=== PATIENT | male | born 1940 | race Caucasian/White ===

== ENCOUNTER 2019-07-02 21:42 | Inpatient (IN) | payer MEDICARE ==
[~2019-07-02] VITALS: Ht 170.2 cm; Wt 52.0 kg
--- NOTE | 2019-07-02 21:42 | NUR ---
PT. TO ROOM 10 VIA EMS WITH C/O FEELING SOB. O2 SAT ON RA BETWEEN 88-92%. BILATERAL LUNG FILEDS ARE DEMINISHED. LEFT EAR IS REDDENED WITH A DRIED BLOODY DTAINAGE. PT. STATES, " THE DOCTOR CHOPPED IT OFF." MD AT BEDSIDE.
[2019-07-02] MEDS ORDERED: FERR SULFATE325 MG PO (22:23)
[2019-07-02] MEDS ORDERED: FOLIC ACID1 MG PO (22:23)
[2019-07-02] MEDS ORDERED: DOCUSATE SOD100 M2 PO (22:25)
[2019-07-02] MEDS ORDERED: CILOXAN 0.3% AU (22:27)
--- NOTE | 2019-07-02 22:42 | NUR ---
PT. HAS NO C/O AT THIS TIME.
[2019-07-02 22:50] LABS: HEMATOCRIT 39.9 % (39.0-50.0); HEMOGLOBIN 12.4 g/dl (14.0-18.0); IMMATURE GRANULOCYTES 4.3 % (0.0-5.0); MEAN CELL VOLUME 111.5 fL CALC (80.0-100.0); MEAN CORPUSCULAR HGB 34.6 pG CALC (26.0-32.0); MEAN CORPUSCULAR HGB CONC 31.1 g/L CALC (32.0-36.0); NEUT# 16.26 thou/uL (1.82-7.42); RED BLOOD COUNT 3.58 mill/uL (4.70-6.10); RED CELL DISTRI WIDTH 19.6 % (11.5-15.5)
--- NOTE | 2019-07-02 23:00 | NUR ---
RESP. THERAPIST APPLIED O2 3 LIT/NC. O2 SAT NOW 100%.
[2019-07-02 23:08] LABS: ALBUMIN 3.6 g/dL (3.2-5.0); ALKALINE PHOSPHATASE 104 u/l (38-126); ANION GAP 11 (6-22 (CALC)); BILIRUBIN, TOTAL 0.9 mg/dL (0.0-1.4); BUN 44 mg/dL (8-23); BUN/CREATININE RATIO 23 (12-20 (CALC)); CARBON DIOXIDE 35 mmol/l (22-30); CHLORIDE 103 mmol/l (95-108); CREATININE 1.9 mg/dL (0.7-1.3); GFR 34 ML/MIN (>=60 (CALC)); GFR FOR AFR.AMER. 41 ML/MIN (>=60 (CALC)); SGOT/AST 24 u/l (19-48); SODIUM 144 mmol/l (137-146); TOTAL PROTEIN 6.7 g/dL (6.3-8.2)
[2019-07-02 23:11] LABS: POTASSIUM 5.3 mmol/l (3.5-5.1)
[2019-07-02 23:20] LABS: MYOGLOBIN 122 ng/mL (0 - 121)
--- NOTE | 2019-07-02 23:47 | NUR ---
IV ABT. STARTED PER MD ORDER.
--- NOTE | 2019-07-02 23:53 | NUR ---
PT. STATES HE CANNOT VOID, REFUSES [facility].
[2019-07-03] VITALS (8 sets, daily range): BP systolic 97–180; BP diastolic 40–96
--- NOTE | 2019-07-03 00:12 | NUR ---
Admission Note Report Given to: VERONICA AMEZQUITA Transported by: Wheelchair X Stretcher Transported with: X Nurse Transporter X Patent IV X O2 X Bridges And Buildings Supervisor
--- NOTE | 2019-07-03 00:19 | NUR ---
PT. TRANSFERED [place] [facility] [place].
--- NOTE | 2019-07-03 00:22 | NUR ---
PT ARRIVED TO [facility] VIA STRETCHER ACCOMPANIED BY ER NURSE, PT ALERT AND APPROPRIATE, PT VERY HARD OF HEARING BUT TRANSFERRED SELF FROM STRETCHER TO BED. SINCE ED NURSE UNSURE IF PT IS ABLE TO STAND. DISCUSSED WITH PT TO STAND FOR WEIGHT. STANDING SCALE BROUGHT TO BEDSIDE PT STOOD FOR WEIGHT. ATTEMPTED TO REMOVE PANTS, PT REFUSED. INFORMED PT THAT COORDINATOR OF ONLINE PROGRAMS NEEDS TO DO AN ASSESSMENT. PT STATES THAT HE IS COLD AND TOO TIRED AND DOES NOT WANT TO TAKE HIS PANTS OFF. NOTED PT IS WEARING A BRIEF, INFORMED PT THAT COORDINATOR OF ONLINE PROGRAMS WILL ALLOW PT TO REST BUT WILL RETURN FOR ASSESSMENT. VERBALIZED UNDERSTANDING. PT HAS PARTIAL L EAR, SEE CHART FOR PHOTO. REFUSED TEDS, SKIN TEAR TO L SKIN AND SCABBED WOUND ON TOP OF L FOOT; PHOTO OBTAINED. CALL LIGHT IN REACH,CONTINUE TO MONITOR.
--- NOTE | 2019-07-03 01:20 | NUR ---
RECEIVED CALL FROM MELIDA BURK, STATES SHE IS PT'S HEALTHCARE SURROGATE. TRANSFERRED CALL TO PT, RECEIVED PERMISSION TO DISCUSSED INFORMATION WITH MELIDA. CALL LIGHT IN REACH,CONTINUE TO MONITOR.
--- NOTE | 2019-07-03 02:59 | NUR ---
RECEIVED CALL FROM ED TELE OFF. REPLACED TELE PT STATES HE IS JUST GOING TO TAKE IT OFF AGAIN BECAUSE HE CAN'T SLEEP WITH IT ON. CALL LIGHT IN REACH,CONTINUE TO MONITOR, BED ALARM FOR SAFETY.
--- NOTE | 2019-07-03 04:46 | NUR ---
BP ELEVATED, ED MD CALLED FOR ORDERS. RECEIVED 1X LABATELOL ORDER FOR BP.CONTINUE TO MONITOR.
[2019-07-03 05:11] LABS: URINE BILIRUBIN - DIPSTICK NEGATIVE (NEGATIVE); URINE BLOOD DIPSTICK TRACE-INTACT (NEGATIVE); URINE COLOR YELLOW; URINE GLUCOSE - DIPSTICK NEGATIVE (NEGATIVE); URINE KETONE NEGATIVE (NEGATIVE); URINE LEUK ESTERASE NEGATIVE (NEGATIVE); URINE NITRITE - DIPSTICK NEGATIVE (Negative); URINE PROTEIN - DIPSTICK TRACE mg/dL (NEG-TRACE); URINE SPECIFIC GRAVITY 1.025; URINE UROBILINOGEN - DIPSTICK 0.2 E.U./dL (0.2)
--- NOTE | 2019-07-03 07:30 | NUR ---
PT IN SUPINE POSITION; A/O X4, FOND DU LAC; DENIES PAIN; REFUSED BREAKFAST THIS AM; O2 3L VIA N/C; TELE MONITORI IN PLACE; IVF INFUSIN IN #20 RAC WITHOUT DIFFICULTY, NO REDNESS OR EDEMA AT SITE; CALL SHAH WITHIN REACH; WILL CONTINUE TO MONITOR.
--- NOTE | 2019-07-03 08:52 | NUR ---
DR. GRAYSON IN TO SEE PT; PLAN OF CARE DISCUSSED;
--- NOTE | 2019-07-03 10:35 | NUR ---
REPORT RECEIVED FORM KALYAN, PT RESTING IN BED, NO C/O DISCOMFORT, IVF INFUSING, TELE MONITOR IN PLACE AND CALL SHAH IN REACH.
--- NOTE | 2019-07-03 20:00 | NUR ---
PT. RESTING IN BED WITH NO COMPLAINTS.ASSESSMENT COMPLETED. IV SITE PATENT AND INFUSING ORDERED IVF WELL. DENIES NEEDS OR PAIN. PT. IS VERY [place]. 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 SCAB ALSO NOTED TO TOP OF LEFT FOOT AND BANDAID IN PLACE TO LEFT FUENTES. ENCUORAGED PO FLUIDS. PT. REQUESTS LIGHTS TO BE TURNED OUT AND DONE SO AT THIS TIME. NEW BAG OF ORDERED IVF HUNG. ENCOURAGED TO CALL FOR ANY NEEDS. CALL LIGHT IS IN REACH. WILL CONTINUE TO MONITOR.
--- NOTE | 2019-07-03 21:32 | NUR ---
APPLIED DUODERM TO RIGHT OUTER BUTTOCK(LOWER HIP AREA) PHOTO OBTAINED AND PLACED IN CHART.
--- NOTE | 2019-07-03 23:28 | NUR ---
SCHED ABT SURI. DENIES NEEDS. VOICES NO CONCERNS. ENCOURAGED TO CALL FOR ANY NEEDS. BED ALARM ON. CALL LIGHT IS IN REACH.
[2019-07-04] VITALS (7 sets, daily range): BP systolic 93–151; BP diastolic 44–77
--- NOTE | 2019-07-04 00:15 | NUR ---
X-RAY TECH AT BEDSIDE OBTAINING C-XRAY. WILL AWAIT RESULTS.
--- NOTE | 2019-07-04 00:25 | NUR ---
[phone]- DIRECTOR TELEHEALTH CALLED AND NOTIFIED STAFF THAT PT'S HR IS UP TO 130-150 S-TACH. PT. IN BED AND C/O SOB ASSISTED PT. TO SIT UP IN BED AND O2 INCREASED TO 3 LITERS/MIN PER NC. SPO2 READS 98-100%. RADIAL HR 100 AT THIS TIME. WHILE IN THE ROOM @0013 ER CALLED AGAIN REPORTING THAT HR IS NOW AFIB. PT. DENIES KNOWING IF HE HAS ANY HX OF HEART PROBLEMS OR IF HE TAKES ANY HEART MEDICATIONS NORMALLY. B/P 126/77 AND HR FLUCTUATING 110-130. LUNG SOUNDS ALSO SOUND CONGESTED. RT AT BEDSIDE TO CONFIRM RHYTHYM CHANGE AND PER RT IT READS A-FLUTTER WITH HR 126. 0025- NOTIFIED DR. GRAYSON OF THE ABOVE NOTE. NEW ORDERS RECEIVED FOR C-XRAY ONLY AT THIS TIME.
--- NOTE | 2019-07-04 01:15 | NUR ---
CLERK CASHIER IN AT BEDSIDE AND OBTAINED C-XRAY. WILL AWAIT RESULTS.
--- NOTE | 2019-07-04 01:20 | NUR ---
PT. MEDICATED WITH ORDERED PRN LOPRESSOR FOR HR 122; WILL CONTINUE TO MONITOR.PT. ON TELEMETRY.
--- NOTE | 2019-07-04 02:36 | NUR ---
CALLED AND SPOKE WITH HAND BOX COVERER AND PER HIM PT'S HR NOW IS DOWN TO 85 AND IS CONVERTED BACK TO SR, BUT HAS BEEN BACK IN FORTH IN AFIB. WILL GET EKG TO CONFIRM RHYTHYM CHANGE. CALLED RT AND NOTIFIED THEM OF NEED FOR EKG.
--- NOTE | 2019-07-04 03:45 | NUR ---
DR. GRAYSON CALLED AND SPOKE TO THIS CORE WORKER ON UPDATED POC FOR PT.. NOTIFIED MD OF RHYTHYM CHANGE BACK TO SR AND HR DOWN IN THE 80'S NOW. ALSO NOTIFIED HIM OF IMPRESSION ON C-XRAY.
[2019-07-04 04:54] LABS: HEMATOCRIT 34.9 % (39.0-50.0); HEMOGLOBIN 10.7 g/dl (14.0-18.0); MEAN CELL VOLUME 114.4 fL CALC (80.0-100.0); MEAN CORPUSCULAR HGB 35.1 pG CALC (26.0-32.0); MEAN CORPUSCULAR HGB CONC 30.7 g/L CALC (32.0-36.0); RED BLOOD COUNT 3.05 mill/uL (4.70-6.10); RED CELL DISTRI WIDTH 19.6 % (11.5-15.5)
[2019-07-04 05:15] LABS: CREATININE 1.9 mg/dL (0.7-1.3); POTASSIUM 4.7 mmol/l (3.5-5.1)
--- NOTE | 2019-07-04 05:21 | NUR ---
SCHED MEDS GIVEN. PT. DENIES NEEDS/PAIN. ENCOURAGED TO CALL FOR ANY NEEDS. BED ALARM REMAINS SET FOR SAFETY PREC. CALL LIGHT IS IN REACH. IV SITE PATENT AND INFUSING ORDERED IVF WELL. CALL LIGHT IS IN REACH.
--- NOTE | 2019-07-04 08:20 | NUR ---
ASSESSMENT DONE . TELE IN PLACE. PT IS A&O X2. PT IS HARD OF HEARING. PT DENIES PAIN PAIN. O2 AT 3L VIA NC. CALL LIGHT IN REACH. PT DENIES NEEDS. ASSISTED PT TO THE WHEELCHAIR FOR HIS CT.
--- NOTE | 2019-07-04 12:20 | NUR ---
ASSISTED PT TO USE THE URINAL. PT IS UNSTEADY ON HIS FEET. CHANGE THE DUODERM TO HIS RIGHT OUTER BUTTOCK. DRESSING TO RIGHT BACK SIDE CDI. BED ALARM IN PLACE. CALL LIGHT IN REACH.
--- NOTE | 2019-07-04 15:21 | NUR ---
PT IS SLEEPING IN BED WITH NO S/S OF DISTRESS NOTED. IVF INFUSING WELL. TELE IN PLACE. CALL LIGHT IN REACH.
--- NOTE | 2019-07-04 18:10 | NUR ---
ER CALLED TELE READING 140-150. CHECKED VS P-110 , BP 122/44, O2 95
--- NOTE | 2019-07-04 18:19 | NUR ---
NOTIFIED DR. GRAYSON RE: ER STATED TELE READING 140-150. VS WERE OBTAIN P-110, BP 122/44. NO NEW ORDERS RECEIVED AT THIS TIME.
--- NOTE | 2019-07-04 19:19 | NUR ---
REPORT FROM DERRICK AMEZQUITA. PT RESTING IN BED, ALERT AND ORIENTED X2, [place]. NO DISTRESS NOTED. 02 @ 3L/M VIA NC. PT DENIES ANY PAIN OR DISCOMFORT. ENCOURAGED SNACK AND ORAL FLUIDS. PT REFUSING. DISCUSSED POC. PT VERBALIZED UNDERSTANDING. WILL REINFORCE NEEDED. CALL LIGHT WITHIN REACH. BED ALARM FOR SAFETY. WILL CONTINUE TO MONITOR.
--- NOTE | 2019-07-04 22:30 | NUR ---
PT FOUND WITH IV SITE DISLODGED. CATHETER INTACT. PRESSURE BANDAGE APPLIED TO SITE. NEW IV START X1 ATTEMPT #22 TO RFA WITH BRISK BLOOD RETURN. PT TOLERATED WELL.
--- NOTE | 2019-07-05 01:07 | NUR ---
PT SOUNDED BED ALARM. ASSISTED PT TO SIDE OF BED TO VOID IN URINAL. PT VOIDED 300ML CLEAR YELLOW URINE. NO DISTRESS NOTED. ASSISTED BACK TO BED. CALL LIGHT WTIHIN REACH AND BED ALARM FOR SAFETY. WILL CONTINUE TO MONITOR
[2019-07-05 04:20] VITALS: BP 155/82
[2019-07-05 05:11] LABS: HEMOGLOBIN 9.9 g/dl (14.0-18.0); MEAN CELL VOLUME 111.5 fL CALC (80.0-100.0); MEAN CORPUSCULAR HGB 34.5 pG CALC (26.0-32.0); MEAN CORPUSCULAR HGB CONC 30.9 g/L CALC (32.0-36.0); RED BLOOD COUNT 2.87 mill/uL (4.70-6.10); RED CELL DISTRI WIDTH 19.6 % (11.5-15.5)
[2019-07-05 05:29] LABS: CREATININE 1.8 mg/dL (0.7-1.3); POTASSIUM 3.8 mmol/l (3.5-5.1)
--- NOTE | 2019-07-05 07:51 | NUR ---
YINKA FROM ER CALLED THAT TELE READING ON PT IS A.FIB 170. PT IS RESTING IN BED WITH NO S/S OF DISTRESS NOTED. ASSESSMENT DONE. PT IS A&O X2 . VS OBTAIN. EKG ORDER. O2 AT 3L VIA NC. PT IS HARD OF HEARING. IVF AT KVO INFUSING WELL. BED ALARM IN PLACE FOR SAFETY. CALL LIGHT IN REACH.
[2019-07-05 07:54] VITALS: BP 102/70
--- NOTE | 2019-07-05 09:20 | NUR ---
DR. GRAYSON AT [facility] TO ASSESS PT AND DISCUSS POC WITH PT. NOTIFIED MD THAT ER HAD CALLED RE: PT A.FIB, EKG WAS ORDER AND VS WERE OBATAIN.
[2019-07-05] MEDS ORDERED: LOPRESSOR25 M1 PO (09:32)
[2019-07-05] MEDS ORDERED: LEVAQUIN750 MG PO (09:39)
--- NOTE | 2019-07-05 10:02 | NUR ---
NEB TX NOT GIVEN DUE TO INCREASED HR.
[2019-07-05] MEDS ORDERED: ASPIRIN ADULT L81 M2 PO (10:08)
[2019-07-05 11:14] VITALS: BP 101/56
--- NOTE | 2019-07-05 12:05 | NUR ---
PRUINE JUICE PROVIDE TO PT . PT IS RESTING IN BED WITH NO S/S OF DISTRESS NOTED. CALL LIGHT IN REACH.
--- NOTE | 2019-07-05 13:40 | NUR ---
NEB TX NOT GIVEN DUE TO INCREASED HR
--- NOTE | 2019-07-05 14:04 | NUR ---
Discharge instructions given. Patient verbalizes understanding of same. Discharged in stable condition via Wheelchair to [facility]HAB with staff. All belongings sent with pt.
--- NOTE | 2019-07-05 14:13 | NUR ---
REPORT GIVEN TO RADHA FROM REHAB.
== END 2019-07-05 14:05 | DRG 193 ==
LOC: ED 21:42 → ED-I 23:17 → ED 23:50 → MS2 23:51
PROVIDERS: Emergency Medicine; ADMIT Internal Medicine; ATTEND Internal Medicine
PROC: 0W993ZZ Drainage of Right Pleural Cavity, Percutaneous Approach (ICD-10-PCS; principal; 2019-07-04)
DX: J18.9 Pneumonia, unspecified organism (principal); L89.213 Pressure ulcer of right hip, stage 3; J96.01 Acute respiratory failure with hypoxia; Z68.1 Body mass index [BMI] 19.9 or less, adult; N17.9 Acute kidney failure, unspecified; J91.8 Pleural effusion in other conditions classified elsewhere; C44.209 Unspecified malignant neoplasm of skin of left ear and external auricular canal; I48.0 Paroxysmal atrial fibrillation; R62.7 Adult failure to thrive; E86.0 Dehydration; N18.9 Chronic kidney disease, unspecified; I50.9 Heart failure, unspecified; H91.90 Unspecified hearing loss, unspecified ear; Y95 Nosocomial condition; Z60.2 Problems related to living alone; Z87.891 Personal history of nicotine dependence

== ENCOUNTER 2019-07-15 17:09 | Inpatient (IN) | payer MEDICARE ==
[~2019-07-15] VITALS: Ht 170.2 cm; Wt 52.3 kg
[~2019-07-15 17:09] MED LIST: ASPIRIN ADULT L81 M2 PO; CILOXAN 0.3% AU; DOCUSATE SOD100 M2 PO; FERR SULFATE325 MG PO; FOLIC ACID1 MG PO; LEVAQUIN750 MG PO; LOPRESSOR25 M1 PO
--- NOTE | 2019-07-15 17:25 | NUR ---
IV ATTEMPT X2 BY THIS NURSE, UNSUCCESSFUL
--- NOTE | 2019-07-15 17:26 | NUR ---
PT IN NO DISTRESS AT THIS TIME, RESP EVEN AND UUNLABORED. O2 SAT 96% ON O2@2LPM VIA N/C
--- NOTE | 2019-07-15 17:40 | NUR ---
UNSUCCESSFUL IV STICK X2 BY FRANK MCDUFFIERN
--- NOTE | 2019-07-15 17:40 | NUR ---
DISCUSSED RESP STATUS WITH MD, O2 SAT 97% ON O2@2LPM VIA NS MD STATES HOLD BIPAP AND REPEAT ABG IN 30 MIN. RT NOTIFIED
[2019-07-15 18:20] LABS: MEAN CELL VOLUME 111.1 fL CALC (80.0-100.0); MEAN CORPUSCULAR HGB 34.1 pG CALC (26.0-32.0); MEAN CORPUSCULAR HGB CONC 30.7 g/L CALC (32.0-36.0); NEUT# 6.75 thou/uL (1.82-7.42); RED BLOOD COUNT 2.61 mill/uL (4.70-6.10); RED CELL DISTRI WIDTH 18.4 % (11.5-15.5)
--- NOTE | 2019-07-15 18:20 | NUR ---
BIPAP INITIATED WITH RT. PT TOLERATING WELL.
--- NOTE | 2019-07-15 18:26 | NUR ---
PT CONTINUOUSLY REMOVIGN BIPAP, O2 SATS DOPPING INTO HIGH 80'2
--- NOTE | 2019-07-15 18:32 | NUR ---
PT WILL NOT LEAVE BIPAP IN PLACE, ADVISED AND REPLACED BIPAP WITH O2@2LPM VIA N/C. O2 SAT 96% ON O2. PT CONFUSED IN NO DISTRESS.
[2019-07-15 18:34] LABS: HEMOGLOBIN 8.9 g/dl (14.0-18.0); IMMATURE GRANULOCYTES 7.4 % (0.0-5.0)
[2019-07-15 18:37] LABS: ACT PARTIAL THROMBO TIME 29.3 SECONDS (20.0-32.5); INTERNATIONAL NORMALIZED RATIO 1.2 RATIO (0.7-1.3); PROTHROMBIN TIME 12.2 SECONDS (9.0-12.5)
[2019-07-15 18:38] LABS: CREATININE 1.4 mg/dL (0.7-1.3)
--- NOTE | 2019-07-15 18:51 | NUR ---
REPORT TO JUAN J AMEZQUITA AND CALLED REPOR TO AMY OF R TO ADVISE OF ADMIT.
--- NOTE | 2019-07-15 18:52 | NUR ---
RECEIVED REPORT FROM BIA ADDISON. PT SITTING UP IN STRETCHER WITH 02 2 2L VIA N/C. PT SAT 100%
[2019-07-15 19:31] LABS: BILIRUBIN, TOTAL 0.6 mg/dL (0.0-1.4); TOTAL PROTEIN 5.7 g/dL (6.3-8.2)
[2019-07-15 19:33] LABS: ALBUMIN 2.8 g/dL (3.2-5.0); POTASSIUM 5.4 mmol/l (3.5-5.1)
--- NOTE | 2019-07-15 19:50 | NUR ---
PT TRYING TO GET OUT OF BED PULLING MONITOR OFF. INSTRUCTED PT THAT HE CAN NOT GET OUT OF BED. HE STATED HE WANTS TO GO HOME. INFORMED PT HE WILL BE GOING UPSTAIRS TO A BED SOON. SAT 98-100%
--- NOTE | 2019-07-15 20:40 | NUR ---
PT TRANSPORTED TO FLOOR VIA WHEELCHAIR WITH BIA WONG ON TELE. IV ZOSYN COMPLETED PULLED IV VANCOMYCIN TO BE HUNG ON FLOOR.
[2019-07-15 20:48] VITALS: BP 107/65
--- NOTE | 2019-07-15 20:48 | NUR ---
PT ARRIVED TO THE FLOOR VIA WHEELCHAIR ACCOMPANIED BY WRITTER. PT ABULATED FROM WHEELCHAIR TO BSC PT HAD A SMALL BROWN PASTE BM, AMBULATED TO BED X2 ASSIST. PT IS HARD OF HEARING. RESPIRATIONS EVEN AND UNLABORED ON O2 @2L VIA NC. LUNGS SOUND DIMINISHED. PEDAL PULSES ARE WEAK. PT DENIES ANY PAIN OR DISCOMFORT AT THIS TIME, PT ORIENTED TO ROOM AND CALL SHAH. SAFETY PRECAUTIONS IN PLACE. WILL CONTINUE TO MONITOR.
--- NOTE | 2019-07-15 23:28 | NUR ---
PT PULLED IV OUT. IV CATHETER NOT INTACTED UPON INSPECTION. BED AND SURROUNDING AREA SEARCHED FOR END OF CATHETER, CATHETER WAS NOT FOUND. MD NOTIFIED, NEW ORDERS OBTAINED AND TO BE CARRIED OUT. ONE TO ONE SITTER AT BEDSIDE FOR PT SAFETY. WILL CONTINUE TO MONITOR.
[2019-07-16 00:05] VITALS: BP 166/67
--- NOTE | 2019-07-16 02:20 | NUR ---
NEW IV STARTED ON PT. PT TOLERATED WELL. # 22 RFA.
--- NOTE | 2019-07-16 04:04 | NUR ---
PT RESTING IN BED WITH EYES CLOSED. RESPIRATIONS EVEN AND UNLABORED ON O2 @ 2L VIA NC. NO S/S OF DISTRESS, ONE TO ONE SITTER AT BED SIDE FOR PT SAFETY, WILL CONTINUE TO MONITOR.
[2019-07-16 07:45] VITALS: BP 105/63
--- NOTE | 2019-07-16 07:45 | NUR ---
PT RESTING IN BED PULLING ON GOWN AND BED SHEETS, SITTER AT BEDSIDE. PT ALERT; NONVERBAL, HARD OF HEARING. DISCUSSED POC, NO RESPONSE FROM PT. NOTED DRY BLOOD SCABBED AREA TO L EAR. PT ON 02 2L NC SAT 99% ON 02. PT HAS ABRASIONS TO BLE;HEALED. DRESSING TO COCCYX AND R HIP INTACT,SEE CHART FOR PHOTOS. ASSESSMENT COMPLETED, CALL LIGHT IN REACH,CONTINUE TO MONITOR.
--- NOTE | 2019-07-16 08:06 | NUR ---
PT RESTING IN BED WITH EYES CLOSED, NO SIGNS OF DISTRESS NOTED, RESP EVEN AND UNLABORED, NC IN PLACE. EASILY AROUSED TO TOUCH, SITTER AT BEDSIDE. INITIATED ZOSYN TO IV SITE. CALL LIGHT IN REACH,CONTINUE TO MONITOR.
[2019-07-16 08:48] LABS: URINE BILIRUBIN - DIPSTICK NEGATIVE (NEGATIVE); URINE BLOOD DIPSTICK SMALL (NEGATIVE); URINE COLOR YELLOW; URINE GLUCOSE - DIPSTICK NEGATIVE (NEGATIVE); URINE KETONE NEGATIVE (NEGATIVE); URINE LEUK ESTERASE NEGATIVE (NEGATIVE); URINE NITRITE - DIPSTICK NEGATIVE (Negative); URINE PROTEIN - DIPSTICK NEGATIVE (NEG-TRACE); URINE UROBILINOGEN - DIPSTICK 0.2 E.U./dL (0.2)
[2019-07-16 08:53] LABS: URINE EPITHELIAL CELLS FEW EPI/hpf (0-FEW); URINE MUCUS MODERATE hpf (NONE-FEW); URINE RBC 0-2 RBC/hpf (0-5)
--- NOTE | 2019-07-16 10:33 | NUR ---
SPOKE WITH NURSE FROM [facility], PT APPARENTLY WAS AMS AT [facility] PT IS SPO2 DEPENDENT AT 2LNC, PT HAD BEEN REMOVING O2 ALL DAY SATS WOULD RETURN TO BASELINE QUICKLY BUT LATER IN THE DAY WHEN REPLACED PT ON SPO2 DID NOT INCREASE REMAINED IN THE 50'S. EMS CALLED.
--- NOTE | 2019-07-16 11:39 | NUR ---
PT RESTING IN BED, EATING LUNCH, MEDICATED PER MAR NOTED WHEN PT TOOK PO LIQUID PT COUGHED EACH TIME. MD NOTIFIED AND LIQUIDS HONEY-THICKENED. SITTER AT BEDSIDE, CALL LIGHT IN REACH,CONTINUE TO MONITOR.
--- NOTE | 2019-07-16 14:50 | NUR ---
BRAIDED BAND ASSEMBLER CALLED AND MADE AWARE TO ORDER AIRMATTRESS.
[2019-07-16 15:33] VITALS: BP 107/66
[2019-07-16 15:55] LABS: ALBUMIN 2.4 g/dL (3.2-5.0); ALKALINE PHOSPHATASE 153 u/l (38-126); AMYLASE 42 u/l (30-110); ANION GAP 8 (6-22 (CALC)); BILIRUBIN, TOTAL 0.5 mg/dL (0.0-1.4); BUN 46 mg/dL (8-23); BUN/CREATININE RATIO 38 (12-20 (CALC)); CARBON DIOXIDE 33 mmol/l (22-30); CHLORIDE 107 mmol/l (95-108); CREATININE 1.2 mg/dL (0.7-1.3); GFR 58 ML/MIN (>=60 (CALC)); GFR FOR AFR.AMER. > 60 ML/MIN (>=60 (CALC)); LIPASE 52 u/l (23-300); POTASSIUM 5.6 mmol/l (3.5-5.1); SGOT/AST 557 u/l (19-48); SODIUM 142 mmol/l (137-146)
--- NOTE | 2019-07-16 15:55 | NUR ---
ORDERS FOR PT TO BE PLACED ON CONTACT FOR MRSA UNTIL SWAB RESULTS RETURN. SWABBED L NARE, TOLERATED WELL. CALL LIGHT IN REACH, CONTINUE TO MONITOR. SITTER AT BEDSIDE.
--- NOTE | 2019-07-16 16:00 | NUR ---
PT RESTING IN BED, NO SIGNS OF DISTRESS NOTED, RESP EVEN AND UNLABORED. 02 2L NC, SITTER AT BEDSIDE, CALL LIGHT IN REACH,CONTINUE TO MONITOR.
[2019-07-16 18:59] VITALS: BP 107/59
--- NOTE | 2019-07-16 19:05 | NUR ---
REPORT RECEIVED FROM ROSALINDA JOSEPH. PT RESTING IN BED. NO S/S OF DISTRESS AT THIS TIME. ONE TO ONE SITTER AT BEDSIDE, FOR PT SAFETY. WILL CONTINUE TO MONITOR.
--- NOTE | 2019-07-16 20:05 | NUR ---
PT RESTING IN BED ALERT AND ORIENTED TO SELF. PT DENIES ANY PAIN AT THIS TIME. RESPIRATIONS SHALLOW ON O2 @ 3L VIA NC. LUNGS SOUND DIMINISHED. PEDAL PULSES ARE WEAK. ONE TO ONE SITTER AT BEDSIDE, FOR PT SAFETY. WILL CONTINUE TO MONITOR.
--- NOTE | 2019-07-17 00:45 | NUR ---
PT PULLING OFF O2, TRYING TO GET OUT OF THE BED, TRYING TO GET OUT OF BED, PULLING ON IV, PT IS CONFUSED. PT REFUSING TO WEAR O2, YELLING "NO" WHEN ATTEMPTING TO REPLACE IT. MD SAMANIEGO BE NOTIFIED.
--- NOTE | 2019-07-17 04:30 | NUR ---
PT IS COMBATIVE KICKING, HITTING, SCRATCHING, AND GRABBING. PT PULLING HIS O2 OFF AND REFUSING TO WEAR IT. PT IS CONFUSED. MD TO BE NOTIFIED.
[2019-07-17 04:41] VITALS: BP 101/78
--- NOTE | 2019-07-17 05:08 | NUR ---
PT MEDICATED WITH HALDOL PER PHYSICAN ORDERS. PT TOLERATED. O2 @ 3L VIA NC PLACED ON PT. ONE TO ONE SITTER AT BEDSIDE. SAFETY PRECAUTIONS IN PLACE.
[2019-07-17 05:16] LABS: HEMATOCRIT 27.4 % (39.0-50.0); HEMOGLOBIN 8.5 g/dl (14.0-18.0); MEAN CELL VOLUME 111.8 fL CALC (80.0-100.0); MEAN CORPUSCULAR HGB 34.7 pG CALC (26.0-32.0); NEUT# 7.36 thou/uL (1.82-7.42); RED BLOOD COUNT 2.45 mill/uL (4.70-6.10); RED CELL DISTRI WIDTH 18.1 % (11.5-15.5)
[2019-07-17 05:19] LABS: ANION GAP 8 (6-22 (CALC)); BUN 41 mg/dL (8-23); BUN/CREATININE RATIO 31 (12-20 (CALC)); CARBON DIOXIDE 32 mmol/l (22-30); CHLORIDE 107 mmol/l (95-108); CREATININE 1.3 mg/dL (0.7-1.3); GFR 53 ML/MIN (>=60 (CALC)); GFR FOR AFR.AMER. > 60 ML/MIN (>=60 (CALC)); POTASSIUM 5.1 mmol/l (3.5-5.1); SODIUM 141 mmol/l (137-146)
[2019-07-17 05:34] LABS: IMMATURE GRANULOCYTES 7.9 % (0.0-5.0)
--- NOTE | 2019-07-17 07:00 | NUR ---
PT REPORT RECIEVED FROM BIA WONG. PT SLEEPING. NO S/S OF DISTRESS. CALL LIGHT IN REACH. BED ALARM ON. SITTER AT BEDSIDE. WILL CONTINUE TO MONITOR.
[2019-07-17 08:10] VITALS: BP 90/50
--- NOTE | 2019-07-17 08:10 | NUR ---
PT A/O X3. SPEECH INAPPROPRIATE. PT CONFUSED, DROWSY. RESP EVEN AND UNLABORED. LUNG DIMINSIHED. O2 @3L REAPPLIED TO PT; PT REMOVES O2 HIMSELF. BOWEL SOUNDS ACTIVE X4. STRONG RADIAL, WEAK PEDAL PULSES. #22 RW NS @100. SITE APPEARS HEALTHY. 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 RT HIP DRESSING; CDI. ABRASIONS TO BLE. PT DENIES ANY PAIN OR NEEDS. POC DISCUSSED. AIR MATTRESS IN PLACE. SAFETY PRECAUTIONS; CALL LIGHT IN REACH, BED ALARM, AND SITTER AT BEDSIDE. CONTACT PRECAUTIONS. WILL CONTINUE TO MONITOR.
--- NOTE | 2019-07-17 08:15 | NUR ---
PT BP READING 90/50, PULSE 100. PT HAS SOME RESPONSE TO VERBAL/PAINFUL STIMULI. NOTIFIED. TO PUT IN ORDERS AT THIS TIME. MARY GRACE LUI AT BEDSIDE. WILL CONTINUE TO MONITOR.
[2019-07-17 09:34] VITALS: BP 103/55
--- NOTE | 2019-07-17 10:47 | NUR ---
DISCUSSED W/ CASE MANAGEMENT SPEECH THERAPY EVALUATION. NIRANJAN FROM CASE MANAGEMENT WILL NOTIFY TERRY ROSAS OF RECOMMENDATION
--- NOTE | 2019-07-17 11:17 | NUR ---
Pt is an 78 y.o. male referred for a Bedside Swallow Evaluation d/t concerns with reduced swallow efficiency and reduced PO intake. Pt admitted with Aspiration PNA with RLL PNA per most recent CXR. Pt presents with absent swallow reflex, no rooting, and significantly reduced mental status, putting him at significant risk for continued aspiration/infection/ with continued PO diet/intake. JAVA TECH recommending NPO status d/t absent swallow; pt unable to sustain life with continued PO intake. Alternative means of nutrition recommended at this time. JAVA TECH recommendation(s) discussed with RN and attending MD. DIET: NPO APMAC Score: 6
--- NOTE | 2019-07-17 11:55 | NUR ---
PT TRANSPORTED TO [facility] VIA STRETCHER ACCOMPIANED BY CEMETERY VAULT INSTALLER AND MARY GRACE LUI IN STABLE CONDITION
--- NOTE | 2019-07-17 12:10 | NUR ---
PT [place]SP[place] [facility] [place] ACCOMPIANED BY REINSURANCE ANALYST AND MARY GRACE LUI IN STABLE CONDITION
--- NOTE | 2019-07-17 12:50 | NUR ---
PT SLEEPING. NO C/O PAIN OR NEEDS. O2 @3L ON PT. CALL LIGHT IN REACH. SITTER AT BEDSIDE. WILL CONTINUE TO MONITOR.
[2019-07-17 14:41] VITALS: BP 106/56
--- NOTE | 2019-07-17 16:16 | NUR ---
PT RESTING. NO C/O PAIN. BED ALARM ON. SITTER AT BEDSIDE. 02 @3L ON PT. AIR MATTRESS IN PLACE. CALL LIGHT IN REACH. WILL CONTINUE TO MONITOR.
--- NOTE | 2019-07-17 19:00 | NUR ---
REPORT RECEIVED FORM ROSALINDA ESPINOSA. PT RESTING IN BED WITH ONE TO ONE SITTER AT BED SIDE. NO S/S OF DISTRESS AT THIS TIME. WILL CONTINUE TO MONITOR.
[2019-07-17 19:40] VITALS: BP 110/53
--- NOTE | 2019-07-17 20:17 | NUR ---
PT RESTING IN BED WITH EYES CLOSED. RESPIRATIONS EVEN AND UNLABORED ON O2 @ 3L VIA NC. LUNGS SOUND DIMINISHED. PT AGITATED PUSHING WRITTER AWAY WHEN DOING ASSESSMENT. SAFETY PRECAUTIONS IN PLACE. ONE TO ONE SITTER AT BEDSIDE FOR PT SAFETY. WILL CONTINUE TO MONITOR.
--- NOTE | 2019-07-17 23:15 | NUR ---
REPORT FROM JUDITH AMEZQUITA. PT RESTING IN BED. NO APPARENT DISTRESS NOTED. ONE ON ONE SITTER REMAINS AT BEDSIDE. WILL CONTINUE TO MONITOR.
[2019-07-18] VITALS (17 sets, daily range): BP systolic 45–109; BP diastolic 31–61
--- NOTE | 2019-07-18 01:57 | NUR ---
PT SITTING UP AT BEDSIDE USING URINAL WITH ASSISTANCE. PT PLEASANT AT THIS TIME. SITTER REMAINS IN ROOM. NO APPARENT DISTRESS. CALL LIGHT WITHIN REACH. WILL CONTINUE TO MONITOR.
[2019-07-18 05:22] LABS: HEMATOCRIT 26.8 % (39.0-50.0); HEMOGLOBIN 8.1 g/dl (14.0-18.0); MEAN CELL VOLUME 112.6 fL CALC (80.0-100.0); MEAN CORPUSCULAR HGB CONC 30.2 g/L CALC (32.0-36.0); RED BLOOD COUNT 2.38 mill/uL (4.70-6.10)
[2019-07-18 05:23] LABS: INTERNATIONAL NORMALIZED RATIO 1.2 RATIO (0.7-1.3); PROTHROMBIN TIME 12.4 SECONDS (9.0-12.5)
[2019-07-18 05:27] LABS: ALBUMIN 2.4 g/dL (3.2-5.0); ALKALINE PHOSPHATASE 107 u/l (38-126); ANION GAP 8 (6-22 (CALC)); BILIRUBIN, TOTAL 0.6 mg/dL (0.0-1.4); BUN 34 mg/dL (8-23); BUN/CREATININE RATIO 26 (12-20 (CALC)); CARBON DIOXIDE 33 mmol/l (22-30); CHLORIDE 108 mmol/l (95-108); CREATININE 1.3 mg/dL (0.7-1.3); GFR 53 ML/MIN (>=60 (CALC)); GFR FOR AFR.AMER. > 60 ML/MIN (>=60 (CALC)); POTASSIUM 4.1 mmol/l (3.5-5.1); SODIUM 144 mmol/l (137-146)
[2019-07-18 05:33] LABS: SGOT/AST 105 u/l (19-48)
--- NOTE | 2019-07-18 05:45 | NUR ---
PT RESTING IN BED WITH EYES CLOSED. NO DISTRESS NOTED. IV FLUIDS INFUSING WITHOUT DIFFICULTY. ONE ON ONE SITTER REMAINS AT BEDSIDE. CALL LIGHT WITHIN REACH. WILL CONTINUE TO MONITOR.
--- NOTE | 2019-07-18 07:00 | NUR ---
REPORT RECEIVED FROM ROSALINDA VICTOR;PT APPEARS TO BE SLEEPING IN SUPINE POSITION WITH MARY GRACE TURNER AT BEDSIDE SITTER;RESPIRATIONS APPEAR EVEN AND UNLABORED ON O2 @ 2L VIA NC;NO S/S OF DISTRESS NOTED;IV FLUIDS INFUSING TO RW WITH EASE;NPO DIET REINFORCED;ALL SAFETY PRECAUTIONS NOTED WITH BED IN THE LOWEST POSITION AND CALL LIGHT IN REACH;WILL CONTINUE TO MONITOR
--- NOTE | 2019-07-18 08:25 | NUR ---
PT RESTING IN SUPINE POSITION WITH MARY GRACE TURNER AT BEDSIDE WITH SITTER;PT CONFUSED, UNORIENTED X3;NO S/S OF DISTRESS NOTED;RESPIRATIONS SHALLOW ON RA, O2 SATS 78% INITIALLY, PLACED O2 ON PT VIA NC @ 2L AND O2 SATS MOHIT TO 92%;RESPIRATORY CALLED TO EVALUATE;PT COMBATIVE AT TIMES AND UNWILLING TO KEEP OXYGEN ON NC OR MASK;ABDOMEN RIGID AND ACTIVE IN ALL 4 QUADRANTS;WEAK PEDAL PULSES;STAGE 2 ULCER TO RIGHT HIP, DRESSING CDI;#22G TO RW INFUSING D5 1/2 NS @ 75ML/HR,SITE APPEARS HEALTHY. ABX HUNG AT THIS TIME;NPO DIET REINFORCED;RE-POSITIONED IN BED, AIR MATTRESS IN PLACED;ENVIORMENTAL CHANGES PROVIDED FOR COMFORT;FALL PRECAUTIONS IN PLACE WITH BED IN THE LOWEST POSITION AND CALL LIGHT IN REACH;WILL CONTINUE TO MONITOR
--- NOTE | 2019-07-18 09:17 | NUR ---
AT BEDSIDE ASSESSING PATIENT.
--- NOTE | 2019-07-18 11:40 | NUR ---
PT RESTING IN SUPINE POSITION, LETHARGIC AND NON-VERBAL;BEAR HUGGER APPLIED TO PT FOR TEMP OF 92.6 RECTALLY. CURRENT BP 85/46 HR 90 O2 @ 92% ON O2 @ 2L VIA NC. AWARE OF VS;SITTER REMAINS AT BEDSIDE;IV FLUIDS INFUSING TO RW WITH EASE;PT CONTINUES TO PULL AT OXYGEN AND IV SITE AT TIMES;CONTACT PRECAUTIONS REMOVED DUE TO NEG FINAL REPORT ON MRSA SWAB;WILL CONTINUE TO MONITOR
--- NOTE | 2019-07-18 12:07 | NUR ---
TEMP RE-CHECK 93.3 RECTALLY WITH BEAR HUGGER IN PLACE,WILL CONTINUE TO MONITOR
--- NOTE | 2019-07-18 13:00 | NUR ---
PT RESTING IN SUPINE POSITION WITH SITTER AT BEDSIDE;CURRENT BP 70/50 MANUALLY HR 90, TEMP 94.4 RECTALLY WITH BEAR HUGGER IN PLACE;O2 99% ON O2 @ 2L VIA NC;IV FLUIDS INFUSING TO RW WITH EASE; NOTIFIED OF VS;NEW ORDERS RECEIVED TO TRANSFER TO ICU;WILL CONTINUE TO MONITOR CLOSELY FOR CHANGE IN STATUS.
--- NOTE | 2019-07-18 13:30 | NUR ---
PT TRANSFERED TO ICU 4 BY STRETCHER WITH TELE, O2, IVF, PATRICK HUGGER FOR CRITICAL OBSERVATION. PT PLACED ON TELE/BP/O2 MONITORS. PT A&Ox0. DRESSING TO R HIP CDI. PT NON VERBAL. CATH NICHOLSON ESTABLISHED, WITH MINIMAL RETURN. PT CONFUSED; REFUSING NC/O2 & PATRICK HUGGER, KICKING OFF COVERS, TRYING TO MOVE FEET OFF BED, GRABBING/SWATTING @STAFF. RN @BEDSIDE WITH PT. MULTIPLE ATTEMPTS MADE TO KEEP PT SAFE & ON MONITORING DEVICES. PT ON SPECIALTY AIR MATTRESS. PT IS DNR.
--- NOTE | 2019-07-18 13:44 | NUR ---
REPORT GIVEN TO BIA BAEZ;PT TRANSFERRED TO ICU AT THIS TIME. CARE RELINQUISHED.
--- NOTE | 2019-07-18 14:40 | NUR ---
#22 RW IV SITE POSITIONAL. NEW IV ESTABLISHED- #22 TO LEFT FOOT. AREA PADDED UNDER TIP OF IV TO PREVENT DISLODGING. PREVIOUS IV SITE DC'D, TIP INTACT & DRESSING APPLIED. PT REMAINS CONFUSED; AGGRESSIVE WITH STAFF & REMOVING MONITORS & NC.
--- NOTE | 2019-07-18 15:11 | NUR ---
PT MEDICATED FOR AGITATION. PT NOW APPEARS RESTFUL.
--- NOTE | 2019-07-18 15:14 | NUR ---
BED ALARM ON. DOORS & CURTAINS FULLY OPEN FOR CONSTANT OBSERVATION.
--- NOTE | 2019-07-18 15:42 | NUR ---
PT MUMBLING TO HIMSELF USING NONCOMPRENDABLE WORDS. YET, CLEARLY YELLS "NO" AT STAFF WHEN TRYING TO ASSIST PT.
--- NOTE | 2019-07-18 16:12 | NUR ---
MD NOTIFIED OF PTS VITAL SIGNS. NEW ORDERS FOR IL NACL BOLUS & INCREASE O2 TO 4L. ORDER FAXED TO PHARMACY.
--- NOTE | 2019-07-18 17:07 | NUR ---
PT TRYING TO MOVE HIS FEET/LEGS TO SIDE OF BED, BUT BEING UNSUCCESSFUL. 4L NC IN PTS MOUTH. IVF RUNNING IN L FOOT. CATH NICHOLSON IN PLACE. PT GRIPPING BED RAILS TIGHTLY. PT & V/S CLOSELY MONITORED. BREATHING IS RAPID/SHALLOW. PT REFUSING COVERS.
--- NOTE | 2019-07-18 19:00 | NUR ---
AT BEDSIDE TO SEE PT, NO NEW ORDERS AT THIS TIME. CONTINUE TO MONITOR.
--- NOTE | 2019-07-18 19:30 | NUR ---
PT RESTING IN BED, RESTLESS, REACHING ARMS OUT TO CEILING. RESP EVEN AND UNLABORED. PT ON 02 4L NC, COARSE LUNG SOUNDS, LOOSE COUGH;NONPRODUCTIVE. ATTEMPTED TO DISCUSS POC, PT ALERT TO TOUCH, NONVERBAL GROANS BUT NO SPEECH. PT IS NPO, IVF INFUSING TO L FOOT NO SIGNS OF IRRITATION OR INFILTRATION TO SITE, NICHOLSON DRAINING TO GRAVITY, STAT LOCK IN PLACE. TEMP 96.5 SKIN COOL TO TOUCH, PT PLACED ON BEAR HUGGER. PT IS ON AN AIRMATTRESS, TURNED PT TO HIS SIDE TO ASSESS BACK, PT HAD A LARGE BM SPECIMEN SENT TO LAB, DWIGHT CARE COMPLETED AND NEW LINENS AND GOWN APPLIED, PT TOLERATED WELL. PT DID NOT OPEN EYES, DRESSING TO BUTTOCK REMOVED REDNESS NOTED, AREA TO R HIP DRESSING CHANGED. REPOSITIONED PT TO HIS L SIDE AT THIS TIME. ASSESSMENT COMPLETED, CALL LIGHT IN REACH,BED ALARM FOR SAFETY,CONTINUE TO MONITOR.
--- NOTE | 2019-07-18 20:36 | NUR ---
PT FIDGITTY AND PULLING AT SHEETS NOTED R HAND UNDER SHEETS, STONE GRADER TO BEDSIDE NOTED PT SQUEEZING HIS PENIS, REMOVED PT HAND FROM PENIS AND PLACED HANDS OVER BLANKETS, AND TIGHTLY CLOSED SOAP CONTAINER PLACED IN HAND. PT GRASPED TIGHTLY. EYES REMAINED CLOSED. CALL LIGHT IN REACH, BED ALARM FOR SAFETY, CONTINUE TO MONITOR.
--- NOTE | 2019-07-18 21:31 | NUR ---
PT CONTINUES TO PULL AT BLANKETS AND LIFTING LEGS TO GET OUT OF BED, PT MEDICATED WITH ATIVAN AT THIS TIME. CALL LIGHT IN REACH,CONTINUE TO MONITOR.
--- NOTE | 2019-07-18 22:31 | NUR ---
PT RESTING IN BED, RESP EVEN AND UNLABORED. INTERMITTENT GROANS AND REACHING AT CEILING. NO SIGNS OF DISTRESS NOTED, CALL LIGHT IN REACH, CONTINUE TO MONITOR.
[2019-07-19] VITALS (14 sets, daily range): BP systolic 80–117; BP diastolic 44–81
--- NOTE | 2019-07-19 00:48 | NUR ---
PT RESTING IN BED, REPOSITIONED PT, PT TOLERATED WELL. BEAR HUGGER REMAINS IN PLACE. IVF RUNNING, IV SITE PATENT NO SIGNS OF REDNESS OR SWELLING.CONTINUE TO MONITOR.
--- NOTE | 2019-07-19 02:49 | NUR ---
PT GROANING IN BED, REMOVING BEAR HUGGER AND BLANKETS, PT KEEPS REACHING AT CEILING. NO SIGNS OF DISTRESS NOTED, RESP EVEN AND UNLABORED. CONTINUE TO MONITOR.
--- NOTE | 2019-07-19 04:40 | NUR ---
SKEIN WASHER AT BEDSIDE, LABS OBTAINED, PT TOLERATED WELL. PT REMAINED WITH EYES CLOSED, RESP EVEN AND UNLABORED. CALL LIGHT IN REACH,CONTINUE TO MONITOR.
[2019-07-19 04:50] LABS: HEMATOCRIT 26.1 % (39.0-50.0); HEMOGLOBIN 8.1 g/dl (14.0-18.0); MEAN CELL VOLUME 111.1 fL CALC (80.0-100.0); MEAN CORPUSCULAR HGB 34.5 pG CALC (26.0-32.0); RED BLOOD COUNT 2.35 mill/uL (4.70-6.10)
[2019-07-19 05:15] LABS: ALBUMIN 2.3 g/dL (3.2-5.0); BILIRUBIN, TOTAL 0.6 mg/dL (0.0-1.4); CREATININE 1.7 mg/dL (0.7-1.3); POTASSIUM 4.1 mmol/l (3.5-5.1); TOTAL PROTEIN 4.8 g/dL (6.3-8.2)
--- NOTE | 2019-07-19 06:05 | NUR ---
PT FIDGETTING WITH BEAR HUGGER, REACHING UP TO CEILING, NO SIGNS OF DISTRESS NOTED, RESP EVEN AND UNLABORED. CALL LIGHT IN REACH,CONTINUE TO MONITOR.
--- NOTE | 2019-07-19 06:45 | NUR ---
RECVD REPORT FROM BIA JOSEPH AT START OF SHIFT.
--- NOTE | 2019-07-19 07:00 | NUR ---
REPORT RECEIVED FROM AM NURSE, PT LYING IN SUPINE POSITION, VERBALLY UNRESPONSIVE BUT RESPONDS TO TACTILE STIMULI, RESTLESS AND ATTEMPTING TO REMOVE TUBES/DRAIN AT THIS TIME, NURSE ADDRESSED CONDITION AND PT BECAME CALM THEN FELL ASLEEP.
--- NOTE | 2019-07-19 07:15 | NUR ---
BIA MCCLURE SITTING AT BEDSIDE WITH PT TO PREVENT PT FROM HARMING HIMSELF.
--- NOTE | 2019-07-19 07:30 | NUR ---
PT MEDICATED FOR AGITATION. CANDI @BEDSIDE.
--- NOTE | 2019-07-19 07:59 | NUR ---
PT MILDLY AGITATED DURING ASSESSMENT. BREATHING EVEN/SHALLOW/UNLABORED. HYPOACTIVE BS. NO APPARENT PAIN. R HIP DRESSING CHANGED THIS AM ON PM SHIFT. EDEMA TO BLE. ESTABLISHED IV TO LEFT FOOT PATENT.
--- NOTE | 2019-07-19 09:24 | NUR ---
MELIDA BURK CALLED AT [phone], FOR DR GRAYSON. DISCUSSED POC OPTIONS FOR FAILURE TO THRIVE & MULTIPLE ORGAN FAILURE WITH HEALTH CARE SUROGATE. MELIDA WOULD LIKE PT TO BE "KEPT COMFORTABLE". LM FOR DEV MCDUFFIE AT [phone], 2ND [facility].
--- NOTE | 2019-07-19 09:33 | NUR ---
DR GRAYSON SPOKE WITH DEV MCDUFFIE, HEALTH CARE SURROGATE, ABOUT PTS POC. SHE AGREED WITH PRIMARY SURROGATE TO NO FURTHER CARE/ TO MAKE PT COMFORTABLE. PER DR GRAYSON, STOP ALL MEDICATIONS INCLUDING IVF & ABX.
--- NOTE | 2019-07-19 10:00 | NUR ---
PT RESTFUL AT THIS TIME. SITTER @BEDSIDE.
--- NOTE | 2019-07-19 10:07 | NUR ---
MENTATION REMAINS SAME, REPOSITIONED, DWIGHT-CARE GIVEN.
--- NOTE | 2019-07-19 13:14 | NUR ---
pt sleeping in bed on specialty mattress. sitter @bedside. will continue to monitor.
--- NOTE | 2019-07-19 13:32 | NUR ---
RESTING CALMLY, ORAL CARE ADMINISTERED, TOLERATED WITH MILD RESISTANCE.
--- NOTE | 2019-07-19 13:44 | NUR ---
RBVO TO DC ALL MEDICATIONS. PT ON COMFORT MEASURES ONLY. ORDER FAXED TO PHARMACY.
--- NOTE | 2019-07-19 16:02 | NUR ---
REPORT GIVEN TO BIA MCCLURE. PT TRANSFERED WITH ALL BELONGINGS TO [facility]. CARE RELIQUISHED.
--- NOTE | 2019-07-19 16:20 | NUR ---
REPORT RECEIVED FROM GLEN MANRIQUE LETHARGIC, NON-VERBAL AND MILDLY RESTLESS, TRANSFERRED VIA BED TO ROOM 271, O2 @ 4L VIA NC IN PLACE, IV CATHETER IN PLACE TO LEFT FOOT, CALL SHAH IN REACH AND BED ALARM ON.
--- NOTE | 2019-07-19 18:45 | NUR ---
REPORT FROM REN AMEZQUITA. PT RESTING IN BED WITH EYES CLOSED. NO DISTRESS NOTED. O2 VIA NC IN PLACE. RESPIRATIONS EVEN AND UNLABORED. NO DISTRESS NOTED. AIR MATTRESS. BED ALARM FOR SAFETY. CALL LIGHT WITHIN REACH. WILL CONTINUE TO MONITOR.
--- NOTE | 2019-07-19 22:05 | NUR ---
PT NOTED TO BE UNRESPONSIVE. NO RISE AND FALL OF CHEST AND NO PULSE LOCATED. PT IS DNR. CORPORATE TREASURER NOTIFIED. TIME OF CONFIRMED BY SECOND NURSE IN ROOM AT 2208.
--- NOTE | 2019-07-19 22:14 | NUR ---
MASTER GLAZIER PHYSICIAN NOTIFIED VIA TELEPHONE OF PT PASSING.
--- NOTE | 2019-07-19 22:17 | NUR ---
HEALTH CARE SURROGATE, DEV FROY NOTIFIED VIA TELEPHONE. NO HOME ARRANGEMENTS WERE MADE PRIOR.
--- NOTE | 2019-07-19 22:24 | NUR ---
[employer] NOTIFIED. CROSSING WATCHMAN SPOKE WITH MOHIT. REFERENCE #[id number]. [facility], AWAITING CALL BACK AT THIS TIME.
--- NOTE | 2019-07-19 23:58 | NUR ---
[facility] RETURNED CALL. PT MAY BE RELEASED AT THIS TIME PT NOT A CANDIDATE. [facility] NOTIFIED AT THIS TIME.
--- NOTE | 2019-07-20 01:12 | NUR ---
PT RELEASED TO [facility].
== END 2019-07-20 01:12 | disposition expired | DRG 177 ==
LOC: ED 17:09 → ED-I 18:45 → ED 18:47 → MS2 18:48 → ICU 07-18 13:30 → MS2 07-19 16:09
PROVIDERS: Internal Medicine; Nurse Practitioner Family; ADMIT Internal Medicine; ATTEND Internal Medicine
PROC: 5A09357 Assistance with Respiratory Ventilation, Less than 24 Consecutive Hours, Continuous Positive Airway Pressure (ICD-10-PCS; principal; 2019-07-15)
DX: J69.0 Pneumonitis due to inhalation of food and vomit (principal); J96.21 Acute and chronic respiratory failure with hypoxia; E43 Unspecified severe protein-calorie malnutrition; Z68.1 Body mass index [BMI] 19.9 or less, adult; G93.49 Other encephalopathy; R64 Cachexia; N17.9 Acute kidney failure, unspecified; J91.8 Pleural effusion in other conditions classified elsewhere; C80.1 Malignant (primary) neoplasm, unspecified; C44.209 Unspecified malignant neoplasm of skin of left ear and external auricular canal; K72.90 Hepatic failure, unspecified without coma; H91.90 Unspecified hearing loss, unspecified ear; D64.9 Anemia, unspecified; L89.152 Pressure ulcer of sacral region, stage 2; L89.212 Pressure ulcer of right hip, stage 2; R62.7 Adult failure to thrive; F03.90 Unspecified dementia, unspecified severity, without behavioral disturbance, psychotic disturbance, mood disturbance, and anxiety; R74.8 Abnormal levels of other serum enzymes; R19.5 Other fecal abnormalities; Z87.891 Personal history of nicotine dependence; Z99.81 Dependence on supplemental oxygen; Z66 Do not resuscitate
CPT/HCPCS: G0378; J2060